=== PATIENT | female | born 1970 | race Caucasian/White ===

== ENCOUNTER → 2016-10-07 16:21 | Emergency (ER) | payer OTHER ==
[~2016-10-07 16:21] MED LIST: HYDROcodone/ACETAMIN 5-325 MG* 1 TAB PO ONE
[2016-10-07 17:12] VITALS: BP 136/87
--- NOTE | 2016-10-07 18:13 | UC ---
Lower Extremity/Ankle HPI - HPI Summary HPI Summary: 46 yo F c/o severe left leg pain x 1 week. Pt states she stepped on uneven surface and heard and felt a tear in the back or her knee and felt pain both sides of knee and the back of her thigh and left outside of her thigh. Did not fall. Had a cane with her that she uses when her back is bothering her. [facility] in [place] and gets nerve block for the back pain. Is on topiramate, follows with Dr. York, is being evaluated for seizures , and has had no incidences of passing out since being on topiramate. Pt states her current leg pain is way worse than any leg pain she has had associated with her back. - History of Current Complaint Chief Complaint: UCLowerExtremity Stated Complaint: LEFT LEG PAIN Time Seen by Provider: 10/07/16 18:03 Hx Obtained From: Patient Hx Last Menstrual Period: 10/02/16 Onset/Duration: Sudden Onset, Lasting Days - 10, Still Present Severity Initially: Moderate Severity Currently: Severe Pain Intensity: 10 Pain Scale Used: 0-10 Numeric Aggravating Factor(s): Standing, Ambulation Alleviating Factor(s): Nothing Able to Bear Weight: Yes - Risk Factors Gout Risk Factors: Obesity - Allergies/Home Medications Allergies/Adverse Reactions: Allergies Allergy/AdvReac Type Severity Reaction Status Date / Time No Known Allergies Allergy Verified 10/07/16 17:12 Home Medications: Home Medications Cyclobenzaprine TAB* [Flexeril 10 MG TAB*] 5 mg PO BID PRN 10/07/16 [History Confirmed 10/07/16] Omeprazole [Prilosec] 20 mg PO DAILY 10/07/16 [History Confirmed 10/07/16] PMH/Surg Hx/FS Hx/Imm Hx Endocrine History Of: Denies: Diabetes Cardiovascular History Of: Denies: Hypertension, Pacemaker/ICD Respiratory History Of: Reports: Asthma GI/ History Of: Denies: Renal Disease - Surgical History Surgical History: Yes Surgery Procedure, Year, and Place: TUBAL LIGATION. CYST REMOVED FROM OVARY. BILATERAL CARPAL TUNNEL SURGERY. LEFT SHOULDER SURGERY - Family History Known Family History: Positive: Hypertension - Social History Alcohol Use: None Substance Use Type: None Smoking Status (MU): Never Smoked Tobacco Review of Systems Constitutional: Negative Skin: Negative Eyes: Negative ENT: Negative Respiratory: Negative Cardiovascular: Negative Gastrointestinal: Negative Genitourinary: Negative Motor: Negative Neurovascular: Negative Musculoskeletal: Arthralgia, Calf Tenderness, Myalgia Neurological: Negative Psychological: Negative All Other Systems Reviewed And Are Negative: Yes Physical Exam Triage Information Reviewed: Yes Appearance: Ill-Appearing, Pain Distress, Obese Vital Signs: Initial Vital Signs Temp 97.9 F 10/07/16 17:00 Pulse 70 10/07/16 17:00 Resp 16 10/07/16 17:00 BP 136/87 10/07/16 17:00 Pulse Ox 100 10/07/16 17:00 elevated BP noted, pt in pain Vital Signs Reviewed: Yes Eyes: Positive: Conjunctiva Clear ENT: Positive: Normal ENT inspection. Negative: Hearing grossly normal, Muffled /hoarse voice Neck: Positive: Supple Respiratory: Positive: Lungs clear, Normal breath sounds, No respiratory distress, No accessory muscle use Cardiovascular: Positive: RRR, No Murmur, Pulses Normal, Brisk Capillary Refill Musculoskeletal: Positive: Strength Intact, ROM Intact, Other: - left calf tenderness. Exam limited by obesity. Ligaments stable with stress. No mass or cord palpated. Neurological: Positive: Alert, Muscle Tone Normal Psychological Exam: Normal Skin Exam: Normal Lower Extremity Course/Dx - Differential Dx/Diagnosis Differential Diagnosis/HQI/PQRI: DVT, Sprain, Strain, Other - Morales's cyst Provider Diagnoses: left leg pain, acute - Physician Notifications Time Discussed With Above Provider: 18:30 - Nayla Montesinos MD Instructed by Provider To: MD Will See In ED Discharge - Discharge Plan Condition: Stable Disposition: AGAINST MEDICAL ADVICE Discharge Disposition Comment: pt will go by private car to [facility], daughter will drive. Pt advised inc BP Referrals: Thuy Cedillo PA [Physician Hand Tier] - 11/06/16 (regarding increased BP )
== END | disposition left against medical advice (07) ==
LOC: UCCORT 16:21
DX: M79.605 Pain in left leg (principal); J45.909 Unspecified asthma, uncomplicated; E66.9 Obesity, unspecified
CPT/HCPCS: 99213; G0463

== ENCOUNTER 2018-07-31 16:35 | Emergency (ER) | payer OTHER ==
[2018-07-31 17:19] VITALS: BP 153/82
--- NOTE | 2018-07-31 17:44 | UC ---
Throat Pain/Nasal Craig HPI - HPI Summary HPI Summary: 48-year-old woman comes in with a chief complaint of sinus pressure and rhinorrhea for more than 2 weeks. Patient started initially with rhinorrhea and frontal sinus pressure. The rhinorrhea gradually went to a yellow creamy color. Been using [id number] medications to include decongestants to try to get it better. Things been getting worse and she's been starting to get occipital pounding headaches last 3 days. No change in vision or speech or focal weakness or numbness. She describes occipital headache is a toothache kind of headache. He believes the headache is due to the sinusitis infection. No stiff neck. - History of Current Complaint Chief Complaint: UCGeneralIllness Stated Complaint: SINUS Time Seen by Provider: 07/31/18 17:33 Hx Last Menstrual Period: 07/05/18 Pain Intensity: 10 - Allergies/Home Medications Allergies/Adverse Reactions: Allergies Allergy/AdvReac Type Severity Reaction Status Date / Time gluten Allergy GI Upset Verified 07/31/18 17:17 PMH/Surg Hx/FS Hx/Imm Hx Previously Healthy: Yes Respiratory History: Asthma GI/ History: Gastroesophageal Reflux - Surgical History Surgical History: Yes Surgery Procedure, Year, and Place: TUBAL LIGATION. CYST REMOVED FROM OVARY. BILATERAL CARPAL TUNNEL SURGERY. LEFT SHOULDER SURGERY. SINUS SURGERY - Family History Known Family History: Positive: Hypertension - Social History Alcohol Use: None Substance Use Type: None Smoking Status (MU): Never Smoked Tobacco Review of Systems All Other Systems Reviewed And Are Negative: Yes Constitutional: Positive: Chills Skin: Positive: Negative Eyes: Positive: Negative ENT: Positive: Sore Throat, Nasal Discharge, Sinus Congestion, Sinus Pain/ Tenderness Respiratory: Positive: Negative Cardiovascular: Positive: Negative Gastrointestinal: Positive: Negative Motor: Positive: Negative Neurovascular: Positive: Negative Musculoskeletal: Positive: Negative Neurological: Positive: Headache Psychological: Positive: Negative Is Patient Immunocompromised?: No Physical Exam Triage Information Reviewed: Yes Appearance: Well-Nourished, Ill-Appearing - MILD, Pain Distress - MILD Vital Signs: Initial Vital Signs Temp 97.4 F 07/31/18 17:15 Pulse 81 07/31/18 17:15 Resp 18 07/31/18 17:15 BP 153/82 07/31/18 17:15 Pulse Ox 100 07/31/18 17:15 Vital Signs Reviewed: Yes Eye Exam: Normal Eyes: Positive: Conjunctiva Clear ENT: Positive: Pharyngeal erythema, Nasal congestion, Nasal drainage, Other - TMS WITH SCAR TISSUE, NO PUS SEEN BEHING TMS Neck exam: Normal Neck: Positive: Supple Respiratory: Positive: Lungs clear, Normal breath sounds, No respiratory distress Cardiovascular: Positive: RRR Musculoskeletal Exam: Normal Musculoskeletal: Positive: Strength Intact, ROM Intact Neurological Exam: Normal Neurological: Positive: Alert, Muscle Tone Normal Psychological Exam: Normal Psychological: Positive: Age Appropriate Behavior Skin Exam: Normal Throat Pain/Nasal Course/Dx - Course Course Of Treatment: We will treat with Augmentin. Patient also been on decongestants I recommended stopping decongestants as it may be overdrying her sinuses. We discussed the occipital headache. She has no vision changes or difficulty with speech or weakness or numbness. At this time she believes that headache is secondary to sinus pressure. We discussed that if he has the sinusitis is being treated if the headache does not improve or gets worse she should get reevaluated for potentially having imaging done for the headache. Follow-up her primary care doctor reevaluate sooner if worse. - Differential Dx/Diagnosis Provider Diagnosis: Sinusitis, Head ache Discharge - Sign-Out/Discharge Documenting (check all that apply): Patient Departure All imaging exams completed and their final reports reviewed: No Studies - Discharge Plan Condition: Stable Disposition: HOME Prescriptions: Amoxicillin/Clavulanate TAB* [Augmentin TAB 875*] 875 mg PO BID #20 tab Patient Education Materials: Sinusitis (ED), Acute Headache (ED) Referrals: Rufino Espinal DO [Primary Care Provider] - Additional Instructions: FOLLOW UP WITH YOUR DOCTOR IF NOT COMPLETELY IMPROVED. GET RECHECKED FOR ANY WORSENING OF YOUR CONDITION; PAIN, FEVER, WEAKNESS, NUMBNESS, YOU FEEL ILL OR QUESTIONS OR CONCERNS. - Billing Disposition and Condition Condition: STABLE Disposition: Home
== END 2018-07-31 17:49 | disposition home or self-care (01) ==
LOC: UCCORT 16:35
DX: J32.9 Chronic sinusitis, unspecified (principal); R51 Headache; J45.909 Unspecified asthma, uncomplicated; H73.893 Other specified disorders of tympanic membrane, bilateral; Z91.018 Allergy to other foods; Z98.890 Other specified postprocedural states
CPT/HCPCS: 99212; G0463

== ENCOUNTER 2019-04-14 11:34 | Inpatient (IN) | payer OTHER ==
[~2019-04-14 11:34] MED LIST changes: +Buffered Lidocaine 1% SYRIN* 1 ML/SYRINGE INTRADERM ONE; +Dexamethasone IV* 4 MG/ML 1 ML (4 MG) IV SLOW PU ONE; +Famotidine IV* 10 MG/ML 2 ML (20 mg) IV ONE; -HYDROcodone/ACETAMIN 5-325 MG* 1 TAB PO ONE; +Lactated Ringers 1000 ML Bag* 1,000 ML IV SCH; +Levalbuterol 0.63MG/3ML NEB* UNIT OF USE INH ONE
--- OUTSIDE RECORDS SUMMARY | 2019-04-14 11:37 | XMS REPORT | Continuity of Care Document ---
:1970 External Reference #:[id number] Author Name Riana Goodwin M.D. (transmitted by agent of provider Jess Lr) Address [address] [place] [id number] Care Team Providers Name Role Phone Thuy CedilloSHRUTHI - Medical Care Team Information Customer Sales Service Manager Problems Active Problems Provider Date Migraine Flora York MD Onset: 02/13/2015 Hiatal hernia Thuy Cedillo, PA Onset: 12/07/2018 Note: esophagitis Asthma Thuy Cedillo, PA Onset: 12/21/2018 Obstructive sleep apnea syndrome Thuy Cedillo, PA Onset: 01/05/2019 Note: c-pap Thyroid nodule Thuy Cedillo, PA Onset: 01/05/2019 Prolapsed lumbar intervertebral disc Thuygeovanna Cedillo, PA Onset: 01/05/2019 Non-alcoholic fatty liver Thuy Cedillo, PA Onset: 01/05/2019 Degenerative joint disease involving multiple Thuy Nguyen, PA Onset: 08/2018 joints Note: cervical/lumbar spine, S-I joints, A-C joint, 1st MTP Polyp of colon Thuy Nguyen, PA Onset: 01/05/2019 Note: 2012 Irritable bowel syndrome Thuy Cedillo, PA Onset: 01/05/2019 Posttraumatic stress disorder Thuy Cedillo, PA Onset: 01/05/2019 Note: childhood Anxiety Thuy Cedillo, PA Onset: 01/05/2019 Asthma Thuy Cedillo, PA Onset: 01/05/2019 Fibromyalgia Thuy Cedillo, PA Onset: 01/05/2019 Labile essential hypertension Thuy Cedillo, PA Onset: 01/05/2019 Elevated C-reactive protein Thuy ALBERTO Cedillo Onset: 01/05/2019 Note: and elevated ESR, consistently Social History Type Date Description Comments Sex Unknown ETOH Use Denies alcohol use Tobacco Use Start: Unknown Patient has never smoked Recreational Drug Use Never Used Drugs Smoking Status Reviewed: 02/26/19 Patient has never smoked Allergies, Adverse Reactions, Alerts Active Allergies Reaction Severity Comments Date Demerol Difficulty breathing Severe Pt stopped breathing 12/18/2018 Gluten 01/05/2019 Inactive Allergies NKDA 02/13/2015 Medications Active Medications SIG Qnty Indications Ordering Provider Date Furosemide 1 by mouth every 90tabs Gabriel 01/05/2019 20mg Tablets day MD Isa Omeprazole 1 by mouth every 90caps Gabriel 01/05/2019 40mg day MD Isa Capsules Meloxicam take 1 daily 90tabs Gabriel 01/05/2019 15mg Tablets with food for MD Isa joint/muscle pain. Ferrous Gluconate 1 tab by mouth 90tabs E61.1 Gabriel 01/05/2019 every day MD Isa 324(38Fe) mg Tablets Vitamin D3 Super 1 cap ( or 90caps E55.9 Gabriel 01/05/2019 Strength tablet ) by MD Isa 2000Unit mouth every day Capsules Albuterol Sulfate HFA one puff every 6 Unknown hours as needed 108(90Base) mcg/Act Aerosol History Medications Iron 1 by mouth Gabriel Moss MD 01/05/2019 - 325(65Fe) mg every day 01/05/2019 Tablets Vitamin D High 1 by mouth 90caps Gabriel Moss MD 01/05/2019 - Potency every day 01/05/2019 1000Unit Capsules Medications Administered in Office Medication SIG Qnty Indications Ordering Provider Date Inj, Regadenoson, 0.1 MG Barry Andrew, DO FAC 01/25/2019 Injection Technetium TC 99M Barry Andrew, DO [facility] 01/25/2019 Tetrofosmin, Per Unit Dose Up To 40 Millicuries Injection Technetium TC 99M Barry Andrew, DO [facility] 01/25/2019 Tetrofosmin, Per Unit Dose Up To 40 Millicuries Injection Immunizations Description No Information Available Vital Signs Date Vital Result Comment 02/26/2019 9:33am Height 61 inches 5'1" Weight 284.00 lb Heart Rate 80 /min regular BP Systolic Sitting 140 mmHg LA Large Cuff BP Diastolic Sitting 100 mmHg LA Large Cuff BP Systolic Standing 136 mmHg LA Large Cuff BP Diastolic Standing 102 mmHg LA Large Cuff Respiratory Rate 16 /min Pain Level 7 back pain O2 % BldC Oximetry 96 % BMI (Body Mass Index) 53.7 kg/m2 01/05/2019 11:35am Height 61 inches 5'1" Weight 287.19 lb Heart Rate 66 /min BP Systolic Sitting 136 mmHg BP Diastolic Sitting 78 mmHg O2 % BldC Oximetry 98 % BMI (Body Mass Index) 54.3 kg/m2 Results Test Date Facility Test Result H/L Range Note Laboratory test 02/03/20 [facility] Stool Negative Negative 1, [address] [place] [address] pylori Ag [phone] Laboratory test 01/07/20 [facility] TSH (Thyroid 2.48 mcIU/mL Normal 0.34-5.60 [address] Stim [place]orm) [place] [address] [phone] Free T4 (Free Thyroxine) 0.91 ng/dL Normal 0.61-1.12 1 [id number] 2 Test Performed by: [address] [address] Procedures Date Code Description Status 01/25/2019 94401 Stress Test Completed 01/25/2019 92144 Myocardial Perfusion Imaging Tomographic (Spect) Completed Multiple Studies 01/04/2019 65967 Holter Monitor Review (24 hr)dr review & interp only Completed 12/31/2018 55643 ECG Monitor/Recording W/Visual Superimposition Scanning Completed 12/24/2018 32595 ECHO Transthoracic, Real-Time 2D With Doppler And Color Completed Flow 12/24/2018 55316 ECHO Transthoracic, Real-Time 2D With Doppler And Color Completed Flow 12/18/2018 61036 EKG Tracing & Interpretation Completed 10/15/2013 16030682 Mammogram Completed 07/07/2007 64121342 Colonoscopy Completed Medical Devices Description No Information Available Encounters Type Date Location Provider Dx Diagnosis Office Visit 02/26/2019 Cardiology Services Riana Humphrey R00.2 Palpitations 9:40a Of [employer] [facility] AT Brandon Goodwin M.D. R53.83 Other fatigue E66.9 Obesity, unspecified Z01.810 Encounter for preprocedural cardiovascular examination Office Visit 01/05/2019 11:30a [facility] Thuy Cedillo, M54.5 Low back pain PA E61.1 Iron deficiency E55.9 Vitamin D deficiency, unspecified K21.9 Gastro-esophageal reflux disease without esophagitis R60.0 Localized edema R53.83 Other fatigue M54.2 Cervicalgia Z68.43 Body mass index (BMI) 50.0-59.9, adult Office Visit 12/18/2018 9:40a Cardiology [facility]utaybmarie S. [facility] Of Jai Goodwin M.D. (primary) AT [place] hypertension R94.31 Abnormal electrocardiogram [ECG] [EKG] R06.02 Shortness of breath E66.9 Obesity, unspecified R07.9 Chest pain, unspecified G47.33 Obstructive sleep apnea (adult) (pediatric) Z82.49 Family hx of ischem heart dis and oth dis of the circ sys R00.2 Palpitations Z01.810 Encounter for preprocedural cardiovascular examination Assessments Date Code Description Provider 02/26/2019 R00.2 Palpitations Riana Goodwin M.D. 02/26/2019 R53.83 Other mauricio Goodwin M.D. 02/26/2019 E66.9 Obesity, unspecified Riana Goodwin M.D. 02/26/2019 Z01.810 Encounter for preprocedural Riana Goodwin M.D. cardiovascular examination 01/25/2019 R60.0 Localized edema Barry Andrew, DO [facility] 01/25/2019 R60.0 Localized edema Riana Goodwin M.D. 01/25/2019 R00.2 Palpitations Barry Andrew, DO [facility] 01/25/2019 R00.2 Palpitations Riana Goodwin M.D. 01/25/2019 R53.83 Other fatigue Barry Andrew, DO [facility] 01/25/2019 R53.83 Other fatigue Riana Goodwin M.D. 01/25/2019 R06.02 Shortness of breath Barry Andrew, DO [facility] 01/25/2019 R06.02 Shortness of breath Riana Goodwin M.D. 01/25/2019 R94.31 Abnormal electrocardiogram [ECG] [EKG] Barry Andrew, DO [facility] 01/25/2019 R94.31 Abnormal electrocardiogram [ECG] [EKG] Riana Goodwin M.D. 01/25/2019 I10 Essential (primary) hypertension Barry Andrew, DO [facility] 01/25/2019 I10 Essential (primary) hypertension Riana Goodwin M.D. 01/05/2019 M54.5 Low back pain Thuy [place], PA 01/05/2019 E61.1 Iron deficiency Thuy [place], PA 01/05/2019 E55.9 Vitamin D deficiency, unspecified Thuy [place], PA 01/05/2019 K21.9 Gastro-esophageal reflux disease Thuy [place], PA without esophagitis 01/05/2019 R60.0 Localized edema Thuy [place], PA 01/05/2019 R53.83 Other fatigue Thuy [place], PA 01/05/2019 M54.2 Cervicalgia Thuy [place], PA 01/05/2019 Z68.43 Body mass index (BMI) 50-59.9, adult Thuy Cedillo, PA 01/04/2019 R00.2 Palpitations Riana Goodwin M.D. 12/31/2018 R06.02 Shortness of breath Nurse Visit [facility] 12/31/2018 R94.31 Abnormal electrocardiogram [ECG] [EKG] Nurse Visit [facility] 12/31/2018 R00.2 Palpitations Nurse Visit [facility] 12/24/2018 R06.02 Shortness of breath Riana Goodwin M.D. 12/24/2018 R06.02 Shortness of breath [facility] Schedule 12/24/2018 [facility] (primary) hypertension [facility] Schedule 12/24/2018 R94.31 Abnormal electrocardiogram [ECG] [EKG] [facility] Schedule 12/24/2018 E66.9 Obesity, unspecified [facility] Schedule 12/24/2018 R07.9 Chest pain, unspecified [facility] Schedule 12/18/2018 I[facility] Essential (primary) hypertension Riana Goodwin M.D. 12/18/2018 R94.31 Abnormal electrocardiogram [ECG] [EKG] Riana Goodwin M.D. 12/18/2018 R06.02 Shortness of breath Riana Goodwin M.D. 12/18/2018 E66.9 Obesity, unspecified Riana Goodwin M.D. 12/18/2018 R07.9 Chest pain, unspecified Riana Goodwin M.D. 12/18/2018 G47.33 Obstructive sleep apnea (adult) Riana Goodwin M.D. (pediatric) 12/18/2018 Z82.49 Family history of ischemic heart Riana Goodwin M.D. disease and other diseases 12/18/2018 R00.2 Palpitations Riana Goodwin M.D. 12/18/2018 Z01.810 Encounter for preprocedural Riana Goodwin M.D. cardiovascular examination Plan of Treatment 02/26/2019 - Riana Goodwin M.D.R00.2 PalpitationsFollow up:one yr ovR53.83 Other odwnthsY91.9 Obesity, tlpdilowdqdG74.810 Encounter for preprocedural cardiovascular examination Functional Status Description No Information Available Mental Status Description No Information Available Referrals Description No Information Available
[2019-04-14] MEDS ORDERED: Dexamethasone IV* 4 MG/ML 1 ML (4 MG) ONE (12:17)
[2019-04-14] MEDS ORDERED: Levalbuterol 0.63MG/3ML NEB* UNIT OF USE INH ONE (12:17)
[2019-04-14] MEDS ORDERED: Heparin VIAL(*) 5000 UNITS/ML VIAL (FIVE THOUSAND) ONE (12:17)
[2019-04-14] MEDS ORDERED: ceFAZolin 2 GM PREMIX in ORs 2 GM/50 ML BAG ONE (12:18)
[2019-04-14] MEDS ORDERED: Famotidine IV* 10 MG/ML 2 ML (20 mg) ONE (12:18)
[2019-04-14] MEDS ORDERED: Propofol* 10 MG/ML 20 ML BTL ONE (13:51)
[2019-04-14] MEDS ORDERED: Lidocaine 2% PF * 5 ML VIAL ONE (13:51)
[2019-04-14] MEDS ORDERED: Ondansetron INJ* 2 MG/ML VIAL ONE ×2 (13:51→17:45)
[2019-04-14] MEDS ORDERED: fentaNYL* 50 MCG/ML 5 ML VIAL (250 MCG VIAL) ONE (13:52)
[2019-04-14] MEDS ORDERED: Midazolam* 1 MG/ML 5 ML VIAL (5 MG) ONE (13:52)
[2019-04-14] MEDS ORDERED: Rocuronium* 10 MG/ML VIAL ONE (13:53)
[2019-04-14] MEDS ORDERED: Bupivacaine 0.5% W/EPI SDV* 10 ML VIAL INJ ONE ×2 (14:11→16:37)
[2019-04-14] MEDS ORDERED: Sugammadex * 200 MG/2 ML VIAL IV PUSH ONE (14:27)
[2019-04-14] MEDS ORDERED: ceFAZolin 1 GM ADVAN(*) 1 GM ADDV.VIAL IVPB ONE (14:47)
[2019-04-14] MEDS ORDERED: fentaNYL* 50 MCG/ML 2 ML VIAL (100 MCG VIAL) ONE ×4 (15:28→19:11)
[2019-04-14] MEDS ORDERED: Metoprolol Tartrate IV* 1 MG/ML 5 ML VIAL ONE (15:38)
[2019-04-14] MEDS ORDERED: Ondansetron INJ* 2 MG/ML VIAL IV PRN ×2 (15:39→17:47)
[2019-04-14] MEDS ORDERED: Naloxone* 0.4 MG/ML 1 ML VIAL IV PRN (15:39)
[2019-04-14] MEDS ORDERED: Scopolamine 1.5 mg* PATCH TRANSDERM PRN (15:39)
[2019-04-14] MEDS ORDERED: DiMENhydriNATE IV* 50 MG/ML VIAL IV PUSH PRN (15:39)
[2019-04-14] MEDS ORDERED: DiMENhydriNATE IV* 50 MG/ML VIAL ONE (17:45)
[2019-04-14] MEDS ORDERED: HYDROmorphone INJ* 0.5 MG/0.5 ML SYRINGE IV SLOW PU PRN (17:47)
[2019-04-14] MEDS ORDERED: HYDROmorphone INJ1* 1 MG/ML SYRINGE IV SLOW PU PRN (17:47)
[2019-04-14] MEDS ORDERED: HYDROcodone/ACET. 7.5/325 LIQ* 15 ML UDC PO PRN (17:47)
[2019-04-14] MEDS ORDERED: Acetaminophen ADULT LIQ* 650 MG/20.3 ML UDC PO PRN (17:47)
--- NOTE | 2019-04-14 17:47 | BRIEFOPN ---
Brief Operative/Procedure Note - Operation Details Pre-Op Diagnosis: morbid obesity and hiatal hernia Post-Op Diagnosis: same Procedures: laparoscopic sleeve gastrectomy and hiatal hernia repair Surgeon(s)/Proceduralists: Ivy. Assist: ALBERTO Huffman Anesthesia: GET. Fluids: 1700 ml crystalloid Estimated Blood Loss: < 50 ml Findings: as above Specimen(s)/Culture(s) Description: portion stomach Complications: none
[2019-04-14] MEDS: fentaNYL* 50 MCG/ML 2 ML VIAL (100 MCG VIAL) IV PRN ×3 (17:49→19:13)
[2019-04-14] MEDS ORDERED: Albuterol 2.5 MG/3 ML NEB.SOL* (0.083%) INH PRN (17:52)
[2019-04-14] MEDS ORDERED: HYDROmorphone INJ1* 1 MG/ML SYRINGE ONE (18:24)
[2019-04-14] MEDS: HYDROmorphone INJ1* 1 MG/ML SYRINGE IV PRN ×3 (18:24→19:03)
[2019-04-14] MEDS: Lactated Ringers 1000 ML Bag* 1,000 ML IV SCH (19:30)
[2019-04-14] MEDS: Famotidine IV* 10 MG/ML 2 ML (20 mg) IV SLOW PU SCH (20:53)
[2019-04-14] MEDS ORDERED: Albuterol HFA INHALER* 8 gm MDI INH PRN (21:00)
[2019-04-14] MEDS: Heparin VIAL(*) 5000 UNITS/ML VIAL (FIVE THOUSAND) SUBCUT SCH (22:41)
[2019-04-15] MEDS: Ketorolac INJ* 30 MG/ML 1 ML VIAL IV SCH ×3 (00:57→12:17)
[2019-04-15] MEDS: Lactated Ringers 1000 ML Bag* 1,000 ML IV SCH ×2 (02:35→11:07)
[2019-04-15] MEDS: Heparin VIAL(*) 5000 UNITS/ML VIAL (FIVE THOUSAND) SUBCUT SCH ×2 (05:55→13:42)
[2019-04-15] MEDS ORDERED: Influenza VAC *QUAD* 2019-20* 0.5 ML SYRINGE IM ONE (09:00)
[2019-04-15] MEDS: Famotidine IV* 10 MG/ML 2 ML (20 mg) IV SLOW PU SCH (09:26)
--- NOTE | 2019-04-15 13:01 | PN ---
Progress Note - Progress Note Date of Service: 04/15/19 SOAP: Subjective: Pt seen and examined. Feeling well. ambulating, good UO Objective: [] Temp Pulse Resp BP Pulse Ox 98.2 F 82 16 144/83 95 04/15/19 11:38 04/15/19 11:38 04/15/19 11:38 04/15/19 11:38 04/15/19 11:38 Intake & Output 04/14/19 04/15/19 04/15/19 22:59 06:59 14:59 Intake Total 1800 1200 759 Output Total 400 1000 Balance 1400 200 759 a and o x3, nad lungs clear abdo: soft/ ND/ tender at RUQ; dressing intact ext wnl ugi : wnl Assessment: POD 1 sleeve, HH repair, HD stable Plan: bariatric diet possible d/c home today
[2019-04-15 16:11] VITALS: BP 136/80
[2019-04-15] MEDS ORDERED: D5W 1/2 NS KCl 20 Meq 1000 ML* 1,000 ML IV SCH (17:49)
--- NOTE | 2019-04-15 20:06 | DS ---
CC: ALBERTO Masters; [facility] * DISCHARGE SUMMARY: DATE OF ADMISSION: 04/14/19 DATE OF DISCHARGE: 04/15/19 HOSPITAL COURSE: Ms. Reynolds is a 48-year-old female, worked up as an outpatient with clinically severe obesity, underwent surgical intervention yesterday on 04/14/19, which was the date of admission. The patient underwent a laparoscopic sleeve gastrectomy, was noted to have a hiatal hernia at that time and this was repaired as well. In the postoperative course, the patient was transferred to the PACU and onto the short-stay surgical unit where she did well, ambulating and having good urine output. On postoperative day 1, she underwent an upper GI study, which was within normal limits and the patient was started on a liquid diet. She tolerated this well and was discharged home for planned close followup in our offices on Friday. PHYSICAL EXAMINATION: On the day of discharge, physical exam was performed. The patient was afebrile. Vital signs were stable. Alert and oriented x3, in no apparent distress. Head, Ears, Eyes, Nose, and Throat: Normocephalic, atraumatic. Sclerae anicteric. Mucous membranes are moist. Lungs: Clear to auscultation bilaterally. Abdomen: Soft, nondistended. Mild tenderness in the right upper quadrant. Dressing is clean, dry, and intact. No erythema. No ecchymosis. Extremities within normal limits. PLAN: Discharged home in stable condition for followup in our offices. Medication reconciliation performed and in the chart. This was all discussed with the patient. [id number]/[facility] #: [id number] [facility]
--- NOTE | 2019-04-16 01:29 | OP ---
CC: Primary Care Doctor; [facility] * DATE OF OPERATION: 04/14/19 - ROOM #343 DATE OF : 70 SURGEON: Barry Haynes MD BALLISTICS TESTER: Mr. Huffman. ANESTHESIOLOGIST: Dr. Pang. ANESTHESIA: General anesthesia. PRE-OP DIAGNOSES: Clinically severe obesity and hiatal hernia. POST-OP DIAGNOSES: Clinically severe obesity and hiatal hernia. OPERATIVE PROCEDURE: Laparoscopic sleeve gastrectomy and hiatal hernia repair. BLOOD LOSS: Less than 50 cc of blood loss. FLUIDS: 1700 cc of crystalloid fluid given. SPECIMEN: Portion of stomach. DRAINS: None. COMPLICATIONS: None. DESCRIPTION OF PROCEDURE: The patient was identified in the preoperative area. She was marked, consent was signed. She was evaluated by the staff and was taken to the operating room and, placed on the operating room table in supine position. Preoperative antibiotics were given. Sequential devices were placed on bilateral lower extremities. General anesthesia was induced. Time-out was performed. Folds of the umbilicus were elevated anteriorly and a Veress needle inserted into the abdominal cavity, which was then allowed to insufflate to a pressure of 15 mmHg. The patient tolerated the insufflation well. A periumbilical 12 mm optical trocar was then inserted and Veress needle was identified, removed. Additional trocars were then placed in the following positions: Two 5 mm at the left upper quadrant and one 12 mm in the right upper quadrant. Table was placed in a steep reverse Trendelenburg and Ene retractor was inserted through a subxiphoid incision and the liver was retracted anteriorly and to the right. The gastroesophageal fat pad was exposed, this was large which showed no anterior hernia defect at the hiatus. We bluntly dissected the left seth but prior to doing this, we did have to rearrange our Ene retractor. I first had to take down portion of the triangular ligament laterally on the left of the liver to allow for better exposure. Once this was performed, we went back to the fat pad anterior to the stomach and we were able to dissect behind here and could see at least the most anterior aspect of the left seth. We pulled more fat through this area and were able to dissect this medially. Attention was then turned towards the pylorus, approximately 5 cm proximal to the pylorus, a retrogastric tunnel was made with blunt and sharp dissection and we then took the greater curvature of the stomach with LigaSure device right up to the angle of His. Did prove somewhat difficult as there was hiatal hernia at this site, mostly was not stomach but rather of posterior fat pad and was protruding that required reduction to fully take the short gastric vessels. Once the gastric vessels were taken, we did reduce the fat and did a transection of a portion of the posterior fat pad such that we could see the posterior aspect of the proximal stomach. The hiatus was enlarged and we then decided to create the sleeve stomach first prior to any closure of this area. Sleeve stomach was created with 60 mm purple TIM stapling device with reinforcement strips, starting at the greater curvature, approximately 5 cm proximal to the pylorus and extending it towards the incisura. We placed a 40- Thai bougie tube distally prior to firing this staple and then stayed close to the bougie throughout right up to the proximal stomach which again had been reduced into the abdomen. The staple line was intact without corkscrewing but did extend posteriorly at the most proximal staple line. I cannot fully appreciate the right crura, but the left seth we could see and was dissected appropriately. The bougie was removed back into the esophagus and then pars flaccida opened up and blunt dissection was carried up over the right seth and a tunnel was made behind the stomach safely. Now, we had identified left and right seth. We could see the defect and with the stomach and fat pad reduced, we reapproximated this with 2-0 Ethibond suture using one stitch only. The review of the staple line showed that this was intact, there was no bleeding. The bougie was re-inserted and we could look posterior and there was no significant defect. Portion of the staple line showed some oozing and this was controlled with single clip on the proximal staple line of the sleeve stomach. Next, the resected portion of the stomach was placed in an endoscopic retrieval bag and brought out through the right upper quadrant incision after dilating this incision. This was passed as specimen. We did not pass off the reduced fat pad. The defect was reapproximated with 0-Vicryl suture using Weck closure device. Review of the abdomen showed no bleeding. The Ene retractor was removed which almost fully obscured the sleeve stomach. Then, the abdomen was allowed to collapse. The trocars were removed under direct vision and all incisions were reapproximated in standard fashion followed by sterile dressing. [id number]/[facility] #: [id number] MOSES
== END 2019-04-15 17:15 | disposition home or self-care (01) | DRG 403 ==
LOC: AA 11:34 → SSU 19:29
PROVIDERS: ADMIT Surgery; ATTEND Surgery
PROC: 0BQT0ZZ Repair Diaphragm, Open Approach (ICD-10-PCS; 2019-04-14)
PROC: 0DB64Z3 Excision of Stomach, Percutaneous Endoscopic Approach, Vertical (ICD-10-PCS; principal; 2019-04-14 13:45)
DX: E66.01 Morbid (severe) obesity due to excess calories (principal); K90.41 Non-celiac gluten sensitivity; K21.9 Gastro-esophageal reflux disease without esophagitis; J45.909 Unspecified asthma, uncomplicated; M19.90 Unspecified osteoarthritis, unspecified site; K44.9 Diaphragmatic hernia without obstruction or gangrene; G89.29 Other chronic pain; G47.33 Obstructive sleep apnea (adult) (pediatric); E61.1 Iron deficiency; F41.9 Anxiety disorder, unspecified; F43.10 Post-traumatic stress disorder, unspecified; E55.9 Vitamin D deficiency, unspecified; F25.9 Schizoaffective disorder, unspecified; M79.7 Fibromyalgia; E07.9 Disorder of thyroid, unspecified; E04.1 Nontoxic single thyroid nodule; Z80.9 Family history of malignant neoplasm, unspecified; Z83.3 Family history of diabetes mellitus; Z82.49 Family history of ischemic heart disease and other diseases of the circulatory system; Z68.43 Body mass index [BMI] 50.0-59.9, adult; Z98.51 Tubal ligation status; Z88.8 Allergy status to other drugs, medicaments and biological substances; Z91.048 Other nonmedicinal substance allergy status; Z23 Encounter for immunization
CPT/HCPCS: 43775; 74246; 88307; 90686; A9270-GY; J0690; J1100; J1170; J1240; J1644; J1885; J2250; J2405; J2704; J3010; J3490

== ENCOUNTER 2019-07-21 16:42 | Emergency (ER) | payer OTHER ==
[2019-07-21 17:07] VITALS: BP 112/75
[2019-07-21] MEDS ORDERED: Albuterol/Ipratropium NEB.SOL* Albuterol 2.5 MG/Ipratropium 0.5 MG 3 ML INH ONE (17:43)
--- NOTE | 2019-07-21 17:46 | UC ---
Respiratory Complaint HPI - HPI Summary HPI Summary: 49-year-old female with head congestion for the past 2 weeks and now with sinus pressure and cough. She has a history of asthma and has been using her albuterol nebulizer and inhaler frequently over the past few days. Today she had a fever for 101. - History of Current Complaint Chief Complaint: UCRespiratory Stated Complaint: COUGH, CHEST CONGESTION Time Seen by Provider: 07/21/19 17:19 Hx Obtained From: Patient Hx Last Menstrual Period: hx tubal ?: No Onset/Duration: Gradual Onset, Lasting Weeks Timing: Intermittent Episodes Severity Initially: Mild Severity Currently: Moderate Pain Intensity: 0 Character: Cough: Productive - Occasionally productive of creamy sputum intermittently with clear sputum. Alleviating Factors: Bronchodilator Associated Signs And Symptoms: Positive: Wheezing, URI, Nasal Congestion, Sinus Discomfort - Allergies/Home Medications Allergies/Adverse Reactions: Allergies Allergy/AdvReac Type Severity Reaction Status Date / Time gluten Allergy Severe GI Upset Verified 07/21/19 17:01 meperidine [From Demerol] Allergy Severe Anaphylatic Verified 07/21/19 17:01 Shock PMH/Surg Hx/FS Hx/Imm Hx Previously Healthy: Yes Respiratory History: Asthma - Surgical History Surgical History: Yes Surgery Procedure, Year, and Place: TUBAL LIGATION. CYST REMOVED FROM OVARY. BILATERAL CARPAL TUNNEL SURGERY. LEFT SHOULDER SURGERY. SINUS SURGERY. Gastric sleeve - Family History Known Family History: Positive: Hypertension - Social History Alcohol Use: None Substance Use Type: None Smoking Status (MU): Never Smoked Tobacco - Immunization History Most Recent Influenza Vaccination: 04/15/19 Most Recent Pneumonia Vaccination: up to date Review of Systems All Other Systems Reviewed And Are Negative: Yes Constitutional: Positive: Fever - Fever today ENT: Positive: Nasal Discharge, Sinus Congestion, Sinus Pain/Tenderness Respiratory: Positive: Cough Is Patient Immunocompromised?: No Physical Exam Triage Information Reviewed: Yes Appearance: Well-Appearing, No Pain Distress, Well-Nourished Vital Signs: Initial Vital Signs Temp 97.5 F 07/21/19 17:02 Pulse 66 07/21/19 17:02 Resp 16 07/21/19 17:02 BP 112/75 07/21/19 17:02 Pulse Ox 99 07/21/19 17:02 Vital Signs Reviewed: Yes Eyes: Positive: Conjunctiva Clear ENT: Positive: Pharynx normal, TMs normal, Sinus tenderness - Tender over the maxillary sinuses bilaterally., Uvula midline Neck: Positive: Supple, Nontender, No Lymphadenopathy Respiratory: Positive: No respiratory distress, No accessory muscle use, Rhonchi , Wheezing - Scattered rhonchi and wheezing. No distress. Cardiovascular: Positive: RRR, No Murmur, Pulses Normal, Brisk Capillary Refill Musculoskeletal Exam: Normal Neurological Exam: Normal Psychological Exam: Normal Skin Exam: Normal Respiratory Course/Dx - Course Course Of Treatment: Chest x-ray:Indication: Cough. 2 views of the chest demonstrate no mediastinal shift. Heart is of normal size and configuration. Lung acosta appear clear. IMPRESSION: No active cardiopulmonary disease is noted. Duo neb treatment: Although patient feels shaky following the treatment she states she feels like she is moving more air. She is nontoxic here. I am going to treat her with prednisone taper and a Z-Qasim. - Differential Dx/Diagnosis Provider Diagnosis: Bronchitis Discharge ED - Sign-Out/Discharge Documenting (check all that apply): Patient Departure All imaging exams completed and their final reports reviewed: Yes - Discharge Plan Condition: Fair Disposition: HOME Prescriptions: Azithromyxin QASIM (NF) [Z-Qasim (Zithromax) 250 mg tabs #6] 2 tab PO .TODAY, THEN 1 DAILY #6 tab predniSONE 10 mg TAB [Deltasone 10 MG TAB*] 10 mg PO DAILY 12 Days #30 tab Patient Education Materials: Acute Bronchitis (ED) Referrals: Thuy Cedillo PA [Primary Care Provider] - Additional Instructions: Increase fluids, take the prednisone with food, continue to use your albuterol nebulizer every 4 hours as needed for tight cough or wheezing. Follow-up with your primary care provider on Friday or Friday if no improvement. Go to the emergency room if you have any worsening symptoms over the weekend. - Billing Disposition and Condition Condition: FAIR Disposition: Home
== END 2019-07-21 18:29 | disposition home or self-care (01) ==
LOC: UCCORT 16:42
DX: J40 Bronchitis, not specified as acute or chronic (principal); J45.909 Unspecified asthma, uncomplicated; Z91.018 Allergy to other foods; Z88.5 Allergy status to narcotic agent
CPT/HCPCS: 71046; 99212; A9270-GY; G0463